=== PATIENT | female | born 1995 | race Caucasian/White ===

== ENCOUNTER 2020-08-12 02:50 | Observation (INO) ==
[2020-08-12] MEDS ORDERED: morphine 2 MG/ML VIAL IV PRN (02:55)
[2020-08-12] MEDS ORDERED: ONDANSETRON 4 MG/2 ML VIAL IV ONE (02:55)
--- NOTE | 2020-08-12 02:55 | Emergency Department Note ---
Back Pain HPI General Chief Complaint: Back Pain/Injury Stated Complaint: Back pain Time Seen by Provider: 08/12/20 02:54 Source: patient Limitations: no limitations History of Present Illness HPI Narrative: Narrative: Patient is a 25-year-old female who was seen earlier on my shift was diagnosed with cholelithiasis. Comes back with worsening right upper quadrant pain. Patient denies fever any jaundice type symptoms. Last time she had something to eat was 10:30 PM yesterday. Related Data Home Medications Medication Instructions Recorded Confirmed No Known Home Meds 08/12/20 08/12/20 Allergies Allergy/AdvReac Type Severity Reaction Status Date / Time No Known Drug Allergies Allergy Verified 08/12/20 02:53 Review of Systems ROS ROS Narrative: Narrative: All systems ED: reviewed and negative except as stated. PFSH Narrative Patient History Narrative: Narrative: Medical/Surgical/Family History All Active Problems Elevated bilirubin (Acute) Elevated liver transaminase level (Acute) Biliary colic (Acute) Cholecystitis (Acute) Social History Smoking Status: Never smoker Exam Narrative Narrative: Narrative: General Limitations: no limitations General appearance: Present alert Head Head: Present atraumatic and normocephalic Eye Eye: Present normal appearance, PERRL and EOMI ENT ENT: Present normal exam, normal oropharynx and mucous membranes moist Neck Neck: Present normal inspection, full ROM and trachea midline Chest Chest: Present normal inspection and symmetric chest wall rise Respiratory Respiratory: Present normal lung sounds bilaterally Cardiovascular Cardiovascular: Present regular rate and normal rhythm Adbominal Abdominal: Present soft, tenderness, guarding, rebound, normal bowel sounds and Rhodes's sign; Absent organomegaly, mass and pulsatile mass Rectal Rectal: Present deferred Extremities Extremities: Present normal inspection and full ROM; Absent tenderness Back Back: Present normal inspection and full ROM; Absent tenderness Neurological Neurological: Present alert, oriented X3, CN II-XII intact, normal gait, motor sensory deficit and reflexes normal Psychiatric Psychiatric: Present normal affect Skin Skin: Present warm (WNL); Absent rash Course Course Course Narrative: Patient's work-up was reviewed her ultrasound final interpretation by the radiologist is concerning for cholecystitis. However there is no gallbladder wall thickening there is no pericholecystic fluid and there is no leukocytosis and afebrile. I did consult the general surgeon Dr. Thompson who agreed to admit this patient for cholecystectomy. Patient updated and agreeable to plan. Basic facilitated admission orders were placed to include the patient to be n.p.o. as well as IV Zosyn. Vital Signs Vital signs: Vital Signs Temperature 98.3 F 08/12/20 02:51 Pulse Rate 88 08/12/20 02:51 Respiratory Rate 16 08/12/20 02:51 Blood Pressure 108/86 08/12/20 02:51 Pulse Oximetry (%) 98 08/12/20 02:51 Temperature 98.3 F 08/12/20 02:51 Pulse Rate 100 H 08/12/20 04:31 Respiratory Rate 16 08/12/20 02:51 Blood Pressure 110/80 08/12/20 04:31 Pulse Oximetry (%) 98 08/12/20 04:31 MDM MDM Narrative Medical decision making narrative: Narrative: Spoke to the general surgeon, Dr. Thompson who is agreed to admit this patient for cholecystectomy. Lab Data Result diagrams: 08/12/20 03:22 08/12/20 03:22 Labs: Lab Results 08/12/20 08/12/20 08/12/20 Range/Units 03:16 03:20 03:22 WBC 6.9 (4.5-11.0) K/mcL RBC 4.85 (4.00-5.20) M/mcL Hgb 14.0 (12.0-15.0) g/dL Hct 42.1 (36.0-48.0) % MCV 86.8 (80.0-100.0) fL MCH 28.9 (26.0-34.0) pg MCHC 33.3 (31.0-36.0) g/dL RDW 12.5 (11.5-14.5) % Plt Count 351 (140-440) K/mcL MPV 10.7 H (7.4-10.4) fL Neut % (Auto) 67.8 (38.0-78.0) % Lymph % (Auto) 24.6 (15.0-49.0) % [place] % (Auto) 5.9 (1.0-12.0) % Eos % (Auto) 1.0 (0.0-7.0) % Baso % (Auto) 0.7 (0.0-2.0) % Lymph # (Auto) 1.70 (1.50-4.80) K/mcL [place] # (Auto) 0.41 (0.10-0.90) K/mcL Eos # (Auto) 0.07 (0.00-0.70) K/mcL Baso # (Auto) 0.05 (0.00-0.20) K/mcL Absolute Neutrophils 4.69 (1.80-8.00) K/mcL PT 13.0 (11.9-14.5) sec INR 0.9 (0.9-1.1) VBG Lactic Acid 0.9 (0.5-2.0) mmol/L Sodium (133-145) mmol/L Potassium (3.3-5.1) mmol/L Chloride (96-108) mmol/L Carbon Dioxide (22-30) mmol/L Anion Gap (8.0-16.0) BUN (6-20) mg/dL Creatinine (0.6-1.1) mg/dL GFR Calculation Glucose (70-105) mg/dL Calcium (8.6-10.4) mg/dL Total Bilirubin (0.1-1.0) mg/dL AST (<32) U/L ALT (<40) U/L Alkaline Phosphatase (39-117) U/L Total Protein (5.9-8.4) gm/dL Albumin (3.2-5.2) gm/dL Globulin (2.2-3.7) gm/dL Albumin/Globulin Ratio (1.0-2.3) Lipase (7-60) U/L 08/12/20 Range/Units 03:22 WBC (4.5-11.0) K/mcL RBC (4.00-5.20) M/mcL Hgb (12.0-15.0) g/dL Hct (36.0-48.0) % MCV (80.0-100.0) fL MCH (26.0-34.0) pg MCHC (31.0-36.0) g/dL RDW (11.5-14.5) % Plt Count (140-440) K/mcL MPV (7.4-10.4) fL Neut % (Auto) (38.0-78.0) % Lymph % (Auto) (15.0-49.0) % [place] % (Auto) (1.0-12.0) % Eos % (Auto) (0.0-7.0) % Baso % (Auto) (0.0-2.0) % Lymph # (Auto) (1.50-4.80) K/mcL [place] # (Auto) (0.10-0.90) K/mcL Eos # (Auto) (0.00-0.70) K/mcL Baso # (Auto) (0.00-0.20) K/mcL Absolute Neutrophils (1.80-8.00) K/mcL PT (11.9-14.5) sec INR (0.9-1.1) VBG Lactic Acid (0.5-2.0) mmol/L Sodium 137 (133-145) mmol/L Potassium 3.8 (3.3-5.1) mmol/L Chloride 101 (96-108) mmol/L Carbon Dioxide 26 (22-30) mmol/L Anion Gap 10.0 (8.0-16.0) BUN 8 (6-20) mg/dL Creatinine 1.0 (0.6-1.1) mg/dL GFR Calculation 78 Glucose 121 H (70-105) mg/dL Calcium 9.2 (8.6-10.4) mg/dL Total Bilirubin 3.3 H (0.1-1.0) mg/dL AST 345 H (<32) U/L ALT 345 H (<40) U/L Alkaline Phosphatase 180 H (39-117) U/L Total Protein 7.0 (5.9-8.4) gm/dL Albumin 4.2 (3.2-5.2) gm/dL Globulin 2.8 (2.2-3.7) gm/dL Albumin/Globulin Ratio 1.5 (1.0-2.3) Lipase 26 (7-60) U/L Discharge Plan Patient/Caregiver Discharge Instructions Pt seen by POCKET SECRETARY ASSEMBLER/PA only: No Clinical Impression: Cholecystitis Patient Disposition: Xfer As Inpt ([facility]) Condition: Fair Discharge Date/Time: 08/12/20 04:33 Discharge Location: [facility]
[2020-08-12] MEDS ORDERED: ONDANSETRON 4 MG/2 ML VIAL IV PRN ×3 (03:10→16:00)
[2020-08-12] MEDS ORDERED: morphine 4 MG/ML VIAL IV PRN ×2 (03:10→16:00)
[2020-08-12] MEDS: 0.9 % SODIUM CHLORIDE 1,000 ML IV SCH ×3 (04:00→16:29)
[2020-08-12 04:02] LABS: Basophils # (Auto) 0.05 K/mcL (0.00-0.20); Basophils % (Auto) 0.7 % (0.0-2.0); Eosinophils # (Auto) 0.07 K/mcL (0.00-0.70); Hematocrit 42.1 % (36.0-48.0); Lymphocytes % (Auto) 24.6 % (15.0-49.0); Mean Cell Volume 86.8 fL (80.0-100.0); Mean Corpuscular HGB Conc 33.3 g/dL (31.0-36.0); Mean Platelet Volume 10.7 fL (7.4-10.4); Monocytes # (Auto) 0.41 K/mcL (0.10-0.90); Monocytes % (Auto) 5.9 % (1.0-12.0); Neutrophils % (Auto) 67.8 % (38.0-78.0); Platelet Count 351 K/mcL (140-440); RBC 4.85 M/mcL (4.00-5.20); Red Cell Distribution Width 12.5 % (11.5-14.5); WBC 6.9 K/mcL (4.5-11.0)
[2020-08-12] MEDS: PIPERACILLIN SODIUM/TAZOBACTAM 3.375 GM in DEXTROSE 5% IN WATER 50 ML IV SCH ×4 (04:05→16:48)
[2020-08-12 04:17] LABS: ALT/SGPT 345 U/L (<40); AST/SGOT 345 U/L (<32); Albumin 4.2 gm/dL (3.2-5.2); Albumin/Globulin Ratio 1.5 (1.0-2.3); Alkaline Phosphatase 180 U/L (39-117); Bilirubin,Total 3.3 mg/dL (0.1-1.0); Blood Urea Nitrogen 8 mg/dL (6-20); Calcium 9.2 mg/dL (8.6-10.4); Carbon Dioxide 26 mmol/L (22-30); Chloride 101 mmol/L (96-108); Globulin 2.8 gm/dL (2.2-3.7); Glomerular Filtration Rate 78; Glucose 121 mg/dL (70-105)
[2020-08-12 04:49] LABS: INR 0.9 (0.9-1.1)
[2020-08-12] MEDS: 0.9 % SODIUM CHLORIDE 10 ML SYRINGE IV SCH ×3 (06:08→22:24)
[2020-08-12] MEDS ORDERED: DOCUSATE SODIUM 100 MG CAPSULE PO SCH (09:00)
--- NOTE | 2020-08-12 11:13 | General Surg History&Physical ---
HPI History of Present Illness Patient information: Note initiated : 08/12/20 at 11:07 am Service Date, if different from initiated Date: [] Patient: Shasta Cooper a 25 y/o F admitted on 08/12/20 for Back pain. Chief Complaint: [] History of present illness: Ms. Cooper is a 25 year old F admitted with acute cholecystitis with choledocholithiasis. The patient gives a history of having onset of severe right-sided back pain in the posterior lateral aspect of the right lower rib cage. This occurred about 1-1/2 weeks ago. The pain gradually improved but she will have intermittent right flank pain with meals throughout the week. 2 days ago she had return of severe pain which was uncontrollable. She was again was seen in the emergency room where evaluation revealed gallstones with elevation of bilirubin and liver enzymes. She was treated sy mptomatically and discharged home to have follow-up in the office tomorrow. She was not able to get any discomfort with the hydrocodone so she returned to the emergency room. She has continued severe abdominal pain and her bilirubin and LFTs have increased. She now has dark urine and scleral icterus. Her bilirubin is 3.3. SGOT 345, SGPT 345, alkaline phos 180. Her white blood count is 6.9 and hemoglobin is 14. Patient resides in [place] and is visiting here. She was given the option of returning to [place] to have surgery and ERCP but she wishes to have surgery here and will accept having ERCP here also. She is counseled for laparoscopic cholecystectomy with cholangiogram today with plans to refer to it security manager tomorrow for ERCP within the next couple days. Review of Systems All systems: reviewed and no additional remarkable complaints except as stated PFSH PFSH All Active Problems (Updated 08/12/20 @ 11:19 by Kieran Thompson MD) Choledocholithiasis with cholecystitis (Acute) Cholelithiasis and cholecystitis without obstruction (Acute) Elevated bilirubin (Acute) Elevated liver transaminase level (Acute) Biliary colic (Acute) Cholecystitis (Acute) Surgical History (Updated 08/12/20 @ 11:17 by Kieran Thompson MD) Previous section Family History Mother No problems noted. Father No problems noted. Brother No problems noted. MEDS/ALLERGIES Home Medications and Allergies Home Medications Medication Instructions Recorded Confirmed Type No Known Home Meds 08/12/20 08/12/20 History Allergies Allergy/AdvReac Type Severity Reaction Status Date / Time No Known Drug Allergies Allergy Verified 08/12/20 02:53 Physical Examination Vital Signs Vital signs: Temp Pulse Resp BP Pulse Ox 97.8 F 77 18 89/55 98 08/12/20 07:59 08/12/20 07:59 08/12/20 07:59 08/12/20 07:59 08/12/20 07:59 General physical appearance General physical exam: well developed, well nourished, no distress and moderate pain Eyes Eye exam: PERRL, normal ocular movement and icteric (Mild scleral icterus) ENT ENT exam: normal mucosa and no congestion Head Head exam IM: Present atraumatic, normal inspection and normocephalic Neck Neck exam: no masses, no bruits, trachea midline and no lymphadenopathy Cardiovascular Cardiovascular exam IM: Present normal rate and rhythm and tachycardia Respiratory Respiratory exam: normal expansion, normal respiratory effort, clear to aus cultation and other Abdomen Abdomen: Present tender (Epigastric and right subcostal tenderness) Integumentary Integumentary: Present no rash, no growths and no abnormal pigmentation Neurologic Neurologic: Present normal coordination and normal sensation Musculoskeletal Musculoskeletal: Present normal gait, normal posture and other Psychiatric Psychiatric: Present oriented to time, oriented to person, oriented to place, speech is normal and memory intact Results Labs Result diagrams: 08/12/20 03:22 08/12/20 03:22 Labs: Abnormal lab results 08/12/20 08/12/20 Range/Units 03:22 03:22 MPV 10.7 H (7.4-10.4) fL Glucose 121 H (70-105) mg/dL Total Bilirubin 3.3 H (0.1-1.0) mg/dL AST 345 H (<32) U/L ALT 345 H (<40) U/L Alkaline Phosphatase 180 H (39-117) U/L Diabetes panel 08/12/20 Range/Units 03:22 Sodium 137 (133-145) mmol/L Potassium 3.8 (3.3-5.1) mmol/L Chloride 101 (96-108) mmol/L Carbon Dioxide 26 (22-30) mmol/L BUN 8 (6-20) mg/dL Creatinine 1.0 (0.6-1.1) mg/dL Glucose 121 H (70-105) mg/dL Calcium 9.2 (8.6-10.4) mg/dL AST 345 H (<32) U/L ALT 345 H (<40) U/L Alkaline Phosphatase 180 H (39-117) U/L Total Protein 7.0 (5.9-8.4) gm/dL Albumin 4.2 (3.2-5.2) gm/dL Calcium panel 08/12/20 Range/Units 03:22 Calcium 9.2 (8.6-10.4) mg/dL Albumin 4.2 (3.2-5.2) gm/dL Pituitary panel 08/12/20 Range/Units 03:22 Sodium 137 (133-145) mmol/L Potassium 3.8 (3.3-5.1) mmol/L Chloride 101 (96-108) mmol/L Carbon Dioxide 26 (22-30) mmol/L BUN 8 (6-20) mg/dL Creatinine 1.0 (0.6-1.1) mg/dL Glucose 121 H (70-105) mg/dL Calcium 9.2 (8.6-10.4) mg/dL Adrenal panel 08/12/20 Range/Units 03:22 Sodium 137 (133-145) mmol/L Potassium 3.8 (3.3-5.1) mmol/L Chloride 101 (96-108) mmol/L Carbon Dioxide 26 (22-30) mmol/L BUN 8 (6-20) mg/dL Creatinine 1.0 (0.6-1.1) mg/dL Glucose 121 H (70-105) mg/dL Calcium 9.2 (8.6-10.4) mg/dL Total Bilirubin 3.3 H (0.1-1.0) mg/dL AST 345 H (<32) U/L ALT 345 H (<40) U/L Alkaline Phosphatase 180 H (39-117) U/L Total Protein 7.0 (5.9-8.4) gm/dL Albumin 4.2 (3.2-5.2) gm/dL All other labs normal. A/P Assessment and plan (1) Cholelithiasis and cholecystitis without obstruction: Status: Acute Qualifiers: Cholelithiasis location: gallbladder Cholecystitis acuity: acute Qualified Code(s): K80.00 - Calculus of gallbladder with acute cholecystitis without obstruction (2) Choledocholithiasis with cholecystitis: Status: Acute Narrative A/P Narrative: Patient is counseled for laparoscopic cholecystectomy with cholangiogram. It is highly probable that with the elevated liver enzymes and bilirubin with clinical jaundice that she has a common bile duct stone. We cannot get MRCP today but I will proceed with cholecystectomy and do cholangiogram with plans to schedule ERCP over the next 2 days once g astroenterology is available. Time Spent With Patient Time: Total time spent is greater than 50% in coordination of care (as do cumented) at patient's floor/unit and/or counseling patient:
[2020-08-12] MEDS ORDERED: SUGAMMADEX SODIUM 200 MG/2 ML VIAL IV ONE (13:10)
[2020-08-12] MEDS ORDERED: fentaNYL 250 MCG/5 ML VIAL IV ONE (13:10)
[2020-08-12] MEDS ORDERED: PROPOFOL 200 MG/20 ML VIAL IV ONE (13:10)
[2020-08-12] MEDS ORDERED: LIDOCAINE HCL/PF 100 MG/5 ML SYRINGE IV ONE (13:10)
[2020-08-12] MEDS ORDERED: KETAMINE 50 MG/ML ML ONE (13:10)
[2020-08-12] MEDS ORDERED: DEXAMETHASONE 10 MG/ML VIAL ONE (13:10)
[2020-08-12] MEDS ORDERED: MAGNESIUM SULFATE 2 GM/50 ML BAG IV ONE (13:10)
[2020-08-12] MEDS ORDERED: ONDANSETRON 4 MG/2 ML VIAL ONE (13:10)
[2020-08-12] MEDS ORDERED: ROCURONIUM 10 MG/ML ML IV ONE (13:10)
[2020-08-12] MEDS ORDERED: IOVERSOL 20 ML VIAL IV ONE (13:40)
[2020-08-12] MEDS ORDERED: IPRATROPIUM/ALBUTEROL 3 ML AMPUL.NEB NEB PRN (14:13)
[2020-08-12] MEDS ORDERED: BENZOCAINE/MENTHOL 1 LOZENGE PO PRN (14:13)
[2020-08-12] MEDS ORDERED: KETOROLAC 30 MG/ML VIAL IV PRN (14:13)
[2020-08-12] MEDS ORDERED: diphenhydrAMINE 50 MG/ML VIAL IV PRN (14:13)
[2020-08-12] MEDS ORDERED: MEPERIDINE 25 MG/ML VIAL IV PRN (14:13)
[2020-08-12] MEDS ORDERED: PROMETHAZINE 25 MG/ML VIAL IV PRN (14:13)
[2020-08-12] MEDS ORDERED: fentaNYL 100 MCG/2 ML VIAL IV PRN (14:13)
[2020-08-12] MEDS ORDERED: ACETAMINOPHEN 1,000 MG/100 ML BAG IV ONE (14:13)
[2020-08-12] MEDS ORDERED: NALOXONE HCL 0.4 MG/ML VIAL IV PRN (14:13)
[2020-08-12] MEDS ORDERED: LACTATED RINGERS 250 ML IV PRN (14:13)
[2020-08-12] MEDS ORDERED: LACTATED RINGERS 1,000 ML IV SCH (14:15)
--- NOTE | 2020-08-12 14:38 | Brief Operative Note ---
Brief Operative Note Date of procedure: 08/12/20 Pre-op diagnosis: cholelithiasis with cholecystitis,choledocholithiasis Post-op diagnosis: other (cholelithiasis with cholcystitisand choledocholithiasis) Procedure: laparoscopic cholecystectomywith cholangiogram Grafts/Implants: No Anesthesia: GETA Findings: acute inflammation of gallbladder with multiple stones and distal common bile duct stone with obstruction Complications: none Surgeon: Kieran Thompson Estimated blood loss (cc): 10 Specimens Removed/Pathology: other (gallbladder) Condition: stable Disposition: PACU
[2020-08-12] MEDS ORDERED: oxyCODONE HCL 5 MG TABLET PO PRN ×2 (14:44→16:00)
[2020-08-12] MEDS ORDERED: HYDROmorphone 0.5 MG/0.5 ML SYRINGE IV PRN (14:44)
--- NOTE | 2020-08-12 14:54 | XRay Report ---
HISTORY: FINDINGS: IMPRESSION: 1.3 minutes of fluoroscopy time was used. Interpreted and Authenticated by: Jean Paul Kay 08/12/20
[2020-08-12] MEDS: HYDROmorphone 0.5 MG/0.5 ML SYRINGE IV PRN (18:14)
[2020-08-12] MEDS ORDERED: SENNOSIDES 1 TABLET PO SCH (21:00)
[2020-08-12] MEDS: DOCUSATE SODIUM 100 MG CAPSULE PO SCH (22:23)
[2020-08-12] MEDS: SENNOSIDES 1 TABLET PO SCH (22:24)
[2020-08-13] MEDS: PIPERACILLIN SODIUM/TAZOBACTAM 3.375 GM in DEXTROSE 5% IN WATER 50 ML IV SCH ×4 (00:02→17:30)
[2020-08-13] MEDS: HYDROmorphone 0.5 MG/0.5 ML SYRINGE IV PRN ×6 (00:55→20:30)
[2020-08-13] MEDS: 0.9 % SODIUM CHLORIDE 1,000 ML IV SCH ×4 (03:20→22:16)
[2020-08-13] MEDS: 0.9 % SODIUM CHLORIDE 10 ML SYRINGE IV SCH ×3 (04:13→22:15)
[2020-08-13 07:01] LABS: Basophils # (Auto) 0.01 K/mcL (0.00-0.20); Basophils % (Auto) 0.1 % (0.0-2.0); Eosinophils # (Auto) 0 K/mcL (0.00-0.70); Eosinophils % (Auto) 0 % (0.0-7.0); Lymphocytes # (Auto) 1.63 K/mcL (1.50-4.80); Lymphocytes % (Auto) 17.1 % (15.0-49.0); Mean Cell Volume 87.5 fL (80.0-100.0); Mean Corpuscular HGB Conc 32.5 g/dL (31.0-36.0); Mean Platelet Volume 10.7 fL (7.4-10.4); Monocytes # (Auto) 0.54 K/mcL (0.10-0.90); Monocytes % (Auto) 5.7 % (1.0-12.0); Neutrophils % (Auto) 77.1 % (38.0-78.0); Platelet Count 343 K/mcL (140-440); RBC 4.57 M/mcL (4.00-5.20); Red Cell Distribution Width 12.6 % (11.5-14.5); WBC 9.5 K/mcL (4.5-11.0)
[2020-08-13 07:16] LABS: ALT/SGPT 523 U/L (<40); AST/SGOT 380 U/L (<32); Albumin 3.7 gm/dL (3.2-5.2); Albumin/Globulin Ratio 1.4 (1.0-2.3); Alkaline Phosphatase 195 U/L (39-117); Bilirubin,Direct 1.7 mg/dL (<0.3); Bilirubin,Total 2.8 mg/dL (0.1-1.0); Blood Urea Nitrogen 6 mg/dL (6-20); Calcium 8.9 mg/dL (8.6-10.4); Carbon Dioxide 19 mmol/L (22-30); Chloride 104 mmol/L (96-108); Globulin 2.7 gm/dL (2.2-3.7); Glomerular Filtration Rate 78; Glucose 118 mg/dL (70-105); Lactate Dehydrogenase 410 U/L (135-225); Phosphorous 3.6 mg/dL (2.5-4.5); Triglycerides 120 mg/dL (<150); Uric Acid 1.9 mg/dL (2.5-8.0)
[2020-08-13] MEDS: DOCUSATE SODIUM 100 MG CAPSULE PO SCH ×2 (08:48→20:31)
[2020-08-13] MEDS ORDERED: INDOMETHACIN 25 MG CAPSULE PO ONE (13:34)
[2020-08-13] MEDS ORDERED: NITROGLYCERIN 0.6 MG/HR PATCH TD ONE (14:30)
[2020-08-13] MEDS ORDERED: PROPOFOL 200 MG/20 ML VIAL IV ONE (14:39)
[2020-08-13] MEDS ORDERED: MIDAZOLAM 2 MG/2 ML VIAL IV ONE (15:00)
[2020-08-13] MEDS: LACTATED RINGERS 1,000 ML IV SCH ×3 (15:32→22:17)
--- NOTE | 2020-08-13 16:02 | Internal Medicine Consult Note ---
HPI Data of Consult Primary Care Provider: PCP No Consult Narrative Chief complaint: choledocholithiasis Reason for consult: choledocholithiasis History of present illness: Ms. Cooper is a 25 year old white female who is 4 weeks . She presented to the emergency department last week for complaints of epigastric pain and was discovered to have cholelithiasis. She was sent home, but returned for worsening pain and underwent laparoscopic cholecystectomy.intraoperative cholangiogram showed a dilated common bile duct without any flow into the duodenum. Therefore,the gastroenterology service was consulted for possible ercp. She's had mild right upper quadrant abdominal pain and transaminases have been elevated up to 500 with a total bilirubin 2.8, direct bilirubin 1.7. she is concerned about post-procedure nausea and vomiting as she had significant trouble with hyperemesis gravidarum during her recent . She is lactating. Her significant other is at the bedside. She denies jaundice or dark urine. cc:: CC: Kieran Thompson MD Review of Systems All systems: reviewed and no additional remarkable complaints except as stated PFSH PFSH All Active Problems Choledocholithiasis with cholecystitis (Acute) Cholelithiasis and cholecystitis without obstruction (Acute) Elevated bilirubin (Acute) Elevated liver transaminase level (Acute) Biliary colic (Acute) Cholecystitis (Acute) Surgical History Previous section Family History Mother No problems noted. Father No problems noted. Brother No problems noted. MEDS/ALLERGIES Home Medications and Allergies Home Medications Medication Instructions Recorded Confirmed Type No Known Home Meds 08/12/20 08/12/20 History Allergies Allergy/AdvReac Type Severity Reaction Status Date / Time No Known Drug Allergies Allergy Verified 08/12/20 02:53 EXAM Constitutional Vitals: Temp Pulse Resp BP Pulse Ox 98.9 F 93 H 20 125/74 95 08/13/20 12:00 08/13/20 12:00 08/13/20 12:00 08/13/20 12:00 08/13/20 12:00 Head Head exam: Present atraumatic, normal inspection and normocephalic Eye Eye exam: Present normal appearance Pupils: Present normal accommodation ENT ENT exam: Present mucous membranes moist and normal exam Respiratory Respiratory exam: Present normal respiratory exam and CTAB; Absent accessory muscle use, rales, rhonchi and wheezes Cardiovascular Cardiovascular exam: Present normal rate and rhythm; Absent diastolic murmur, gallop, rubs and systolic murmur GI/Abdominal GI/Abdominal exam: Present normal bowel sounds, soft and tenderness; Absent hernia and organomegaly Neurological Exam Neurological exam: Present alert and oriented X3 Skin Skin exam: Present dry, normal color and warm DATA Data Completed and Pending Labs: Labs from last 24 hours 08/13/20 08/13/20 05:29 05:29 WBC 9.5 RBC 4.57 Hgb 13.0 Hct 40.0 MCV 87.5 MCH 28.4 MCHC 32.5 RDW 12.6 Plt Count 343 MPV 10.7 H Neut % (Auto) 77.1 Lymph % (Auto) 17.1 [place] % (Auto) 5.7 Eos % (Auto) 0 Baso % (Auto) 0.1 Lymph # (Auto) 1.63 [place] # (Auto) 0.54 Eos # (Auto) 0 Baso # (Auto) 0.01 Absolute Neutrophils 7.36 Sodium 137 Potassium 4.2 Chloride 104 Carbon Dioxide 19 L Anion Gap 14.0 BUN 6 Creatinine 1.0 GFR Calculation 78 Glucose 118 H Uric Acid 1.9 L Calcium 8.9 Phosphorus 3.6 Magnesium 2.0 Total Bilirubin 2.8 H Direct Bilirubin 1.7 H GGT 307 H AST 380 H ALT 523 H Alkaline Phosphatase 195 H Lactate Dehydrogenase 410 H Total Protein 6.4 Albumin 3.7 Globulin 2.7 Albumin/Globulin Ratio 1.4 Triglycerides 120 A/P Assessment and plan (1) Choledocholithiasis with cholecystitis: Status: Acute Narrative A/P Narrative: We will proceed with ercp. We discussed the procedure in length, using an illustration. She was advised of the risks of pancreatitis, infection,bleeding, perforation, among others. If a stent is placed, she understands she will require repeat ercp for [place] will. She lives in [place], [place], so we may attempt to coordinate stent retrieval a local asian art curator there. She agreed to proceed. Time Spent With Patient Time: Total time spent is greater than 50% in coordination of care (as documented) at patient's floor/unit and/or counseling patient: Total time spent with greater than 50% in coordination of care (as documented) at patient's floor/unit and/or counseling patient:: 15 - 24 minutes
--- NOTE | 2020-08-13 16:07 | General Surgery Progress Note ---
SUBJECTIVE Subjective Patient information: Note initiated : 08/13/20 at 4:03 pm Service Date, if different from initiated Date: [] Patient: Shasta Cooper 25 y/o F admitted on 08/12/20 for Back pain. Chief Complaint: [] Principal diagnosis: Acute cholecystitis choledocholithiasis Interval history: Patient has done well throughout the night. Her pain is controlled. Liver panel shows persistent elevation in bilirubin and t ransaminases. She is scheduled for ERCP later today. Constitutional Vitals: Vital Signs Temp Pulse Resp BP Pulse Ox 98.9 F 93 H 20 125/74 95 08/13/20 12:00 08/13/20 12:00 08/13/20 12:00 08/13/20 12:00 08/13/20 12:00 Period Temp Pulse Resp BP Sys/Johnson Pulse Ox Last 24 Hr 98.1 F-99.2 F 66-115 16-20 112-127/71-83 95-98 Intake and Output 08/13/20 08/13/20 08/13/20 05:59 13:59 21:59 Intake Total 2450 1100 Output Total 2000 Balance 450 1100 Intake & Output: Intake & Output 08/13/20 08/13/20 08/13/20 05:59 13:59 21:59 Intake Total 2450 1100 Output Total 2000 Balance 450 1100 Intake: IV 1050 1100 Sodium Chloride 0.9% 1,000 ml @ 1000 1000 100 mls/hr IV .Q10H DIANE Rx#: [id number] Zosyn 3.375 gm In Dextrose 5% 50 100 in Water 50 ml @ 100 mls/hr IV Q6H DIANE Rx#:[id number] Oral 1400 Output: Void Amount 2000 Other: Urine Appearance Clear Urine Color Light Zaria Urine Odor Normal Eye Eye exam: Present EOMI and scleral icterus Pupils: Present normal accommodation and PERRL ENT ENT exam: Present mucous membranes moist and normal exam Neck Neck exam: Present full ROM; Absent tenderness and thyromegaly Respiratory Respiratory exam: Present normal respiratory exam and CTAB; Absent rhonchi and wheezes Cardiovascular Cardiovascular exam: Present normal rate and rhythm, RRR, +S1 and +S2; Absent JVD GI/Abdominal GI/Abdominal exam: Present normal bowel sounds, soft and distended (Mild distention) Extremities Exam Extremities exam: Present full ROM and normal inspection Neurological Exam Neurological exam: Present alert and oriented X3; Absent motor sensory deficit Psychiatric Psychiatric exam: Present normal affect and normal mood A/P Assessment and plan (1) Cholelithiasis and cholecystitis without obstruction: Status: Acute Qualifiers: Cholelithiasis location: gallbladder Cholecystitis acuity: acute Qualified Code(s): K80.00 - Calculus of gallbladder with acute cholecystitis without obstruction (2) Choledocholithiasis with cholecystitis: Status: Acute Narrative A/P Narrative: Patient will have ERCP today Anticipate discharge tomorrow Time Spent With Patient Time: Total time spent is greater than 50% in coordination of care (as documented) at patient's floor/unit and/or counseling patient:
[2020-08-13] MEDS ORDERED: ACETAMINOPHEN 1,000 MG/100 ML BAG IV SCH (19:00)
[2020-08-13] MEDS ORDERED: ACETAMINOPHEN 1,000 MG/100 ML BAG IV PRN (19:00)
[2020-08-13] MEDS: SENNOSIDES 1 TABLET PO SCH (20:31)
[2020-08-14] MEDS: PIPERACILLIN SODIUM/TAZOBACTAM 3.375 GM in DEXTROSE 5% IN WATER 50 ML IV SCH ×3 (00:05→12:55)
[2020-08-14] MEDS: HYDROmorphone 0.5 MG/0.5 ML SYRINGE IV PRN ×2 (00:20→03:42)
[2020-08-14] MEDS ORDERED: ACETAMINOPHEN 1,000 MG/100 ML BAG IV ONE (04:41)
[2020-08-14] MEDS: 0.9 % SODIUM CHLORIDE 10 ML SYRINGE IV SCH ×2 (04:52→12:58)
[2020-08-14] MEDS: LACTATED RINGERS 1,000 ML IV SCH ×2 (05:01→15:15)
[2020-08-14 07:27] LABS: Basophils # (Auto) 0.06 K/mcL (0.00-0.20); Basophils % (Auto) 0.7 % (0.0-2.0); Eosinophils # (Auto) 0.27 K/mcL (0.00-0.70); Eosinophils % (Auto) 2.9 % (0.0-7.0); Hematocrit 36.1 % (36.0-48.0); Hemoglobin 11.7 g/dL (12.0-15.0); Lymphocytes # (Auto) 3.64 K/mcL (1.50-4.80); Lymphocytes % (Auto) 39.4 % (15.0-49.0); Mean Cell Volume 88.3 fL (80.0-100.0); Mean Corpuscular HGB Conc 32.4 g/dL (31.0-36.0); Mean Platelet Volume 10.8 fL (7.4-10.4); Monocytes # (Auto) 0.55 K/mcL (0.10-0.90); Platelet Count 266 K/mcL (140-440); RBC 4.09 M/mcL (4.00-5.20); Red Cell Distribution Width 12.9 % (11.5-14.5); WBC 9.2 K/mcL (4.5-11.0)
[2020-08-14 08:16] LABS: ALT/SGPT 351 U/L (<40); AST/SGOT 143 U/L (<32); Albumin 3.6 gm/dL (3.2-5.2); Albumin/Globulin Ratio 1.4 (1.0-2.3); Alkaline Phosphatase 157 U/L (39-117); Bilirubin,Direct 0.4 mg/dL (<0.3); Blood Urea Nitrogen 5 mg/dL (6-20); Carbon Dioxide 25 mmol/L (22-30); Chloride 103 mmol/L (96-108); Globulin 2.6 gm/dL (2.2-3.7); Glomerular Filtration Rate 89; Glucose 82 mg/dL (70-105); Lactate Dehydrogenase 203 U/L (135-225); Phosphorous 3.6 mg/dL (2.5-4.5); Triglycerides 175 mg/dL (<150); Uric Acid 1.6 mg/dL (2.5-8.0)
[2020-08-14] MEDS: DOCUSATE SODIUM 100 MG CAPSULE PO SCH (09:07)
[2020-08-14] MEDS: 0.9 % SODIUM CHLORIDE 1,000 ML IV SCH ×2 (09:21→14:27)
--- NOTE | 2020-08-14 10:41 | ERCP Procedure Note ---
ERCP Procedure Note Procedure Information Patient information: Note initiated : 08/14/20 at 10:39 am Service Date: 08/13/20 Patient: Shasta Cooper 25 y/o F admitted on 08/12/20 for Back pain. Pre-op diagnosis general: Common bile duct obstruction. Post-op diagnosis general: Common bile duct stone. Procedure: ERCP with Stone Extraction Procedure narrative: The procedures, alternatives and risks were discussed with the patient and the patient's questions were answered. With endoscopist-administered intravenous sedation, the Olympus side viewing operating duodenoscope was introduced into the esophagus and advanced to the second part of the duodenum without difficulty. The ampulla of Vater was seated in a small diverticulum. The bile duct was selectively cannulated taking care to avoid the pancreatic duct and cholangiogram obtained. The bile duct was dilated and obstructed with a common duct stone, which was extracted with balloon techniques. At the end of the procedure, the bile duct appeared to be cleared of all stones. The scope was withdrawn. Assessment: Common bile duct stone.
--- NOTE | 2020-08-14 11:17 | Surgical Pathology Report ---
Histology Microscopic Diagnosis Specimen A- GALLBLADDER, CHOLECYSTECTOMY: --- CHRONIC CHOLECYSTITIS. --- CHOLELITHIASIS. --- ONE PERICYSTIC LYMPH NODE WITH LYMPHOID HYPERPLASIA. (DMT). Procedural Impression Cholecystitis; cholelithiasis. Gross Description Received in formalin labeled gallbladder, is a 6.2 x 2.7 x 1.1 cm pink-purple gallbladder specimen. The majority of the serosa is smooth and glistening with approximately 35% roughened brown-martinez. There are two metal clamps present neither of which are on the cystic duct. The mucosa is velvety pink-martinez with no masses or lesions identified. The wall is up to 0.3 cm thick. A 0.3 cm possible lymph node is identified near the cystic duct. There are multiple yellow martinez stones found within the gallbladder specimen ranging in size from less than 0.1 up to 0.4 cm. [employer] portions of the gallbladder specimen including possible lymph node are submitted in one cassette. ([facility]:bmw) Electronically Signed Fabian Bateman MD, FCAP Electronically Signed 08/14/2020 11:16
--- NOTE | 2020-08-14 14:10 | General Surgery Progress Note ---
SUBJECTIVE Subjective Patient information: Note initiated : 08/14/20 at 2:04 pm Service Date, if different from initiated Date: [] Patient: Shasta Cooper 25 y/o F admitted on 08/12/20 for Back pain. Chief Complaint: [] Principal diagnosis: Acute cholecystitis choledocholithiasis Interval history: Patient is doing well. Her pain is controlled. She denies nausea. Bilirubin has decreased to 1 and her SGOT SGPT and alkaline phos have also decreased. Lipase is minimally elevated at 76. White blood count 9.2. ERCP was successful in removing a small stone on yesterday. Constitutional Vitals: Vital Signs Temp Pulse Resp BP Pulse Ox 97.5 F 78 12 116/74 96 08/14/20 08:00 08/14/20 08:00 08/14/20 08:00 08/14/20 08:00 08/14/20 08:00 Period Temp Pulse Resp BP Sys/Johnson Pulse Ox Last 24 Hr 97.5 F-98.8 F 65-108 12-23 86-134/43-99 94-100 Intake and Output 08/14/20 08/14/20 08/14/20 05:59 13:59 21:59 Intake Total 1350 50 Balance 1350 50 Weight 215 lb 12.8 oz 215 lb 12.8 oz Patient Weight 08/15/20 05:59 Weight 215 lb 12.8 oz Intake & Output: Intake & Output 08/14/20 08/14/20 08/14/20 05:59 13:59 21:59 Intake Total 1350 50 Balance 1350 50 Weight 215 lb 12.8 oz 215 lb 12.8 oz Intake: IV 1250 50 Lactated Ringers 1,000 ml @ 125 1000 mls/hr IV .Q8H DIANE Rx#: [id number] Zosyn 3.375 gm In Dextrose 5% 50 50 in Water 50 ml @ 100 mls/hr IV Q6H DIANE Rx#:[id number] Oral 100 Other: # Voids 1 Head Head exam: Present atraumatic, normal inspection and normocephalic Eye Eye exam: Present conjunctival injection, EOMI, normal appearance and scleral icterus Pupils: Present PERRL ENT ENT exam: Present mucous membranes moist and normal exam Neck Neck exam: Present full ROM and normal inspection; Absent tenderness Respiratory Respiratory exam: Present normal respiratory exam and CTAB; Absent rales, rhonchi and wheezes Cardiovascular Cardiovascular exam: Present normal rate and rhythm, RRR, +S1 and +S2; Absent JVD GI/Abdominal GI/Abdominal exam: Present normal bowel sounds, soft, distended (Mild di stention) and tenderness (Mild tenderness of port sites) Extremities Exam Extremities exam: Present full ROM, pedal edema and neurovascular intact Neurological Exam Neurological exam: Present alert, CN II-XII intact, motor sensory deficit and normal gait Psychiatric Psychiatric exam: Present anxious, normal affect and normal mood A/P Assessment and plan (1) Cholelithiasis and cholecystitis without obstruction: Status: Acute Qualifiers: Cholelithiasis location: gallbladder Cholecystitis acuity: acute Qualified Code(s): K80.00 - Calculus of gallbladder with acute cholecystitis without obstruction (2) Choledocholithiasis with cholecystitis: Status: Acute Narrative A/P Narrative: Patient is stable status post cholecystectomy and ERCP with stone extraction. She is clinically stable for discharge home. Time Spent With Patient Time: Total time spent is greater than 50% in coordination of care (as documented) at patient's floor/unit and/or counseling patient:
--- NOTE | 2020-08-14 14:15 | Discharge Summary ---
Discharge Provider Provider Patient information: Note initiated : 08/14/20 at 2:10 pm Service Date, if different from initiated Date: [] Patient: Shasta Cooper 25 y/o F admitted on 08/12/20 for Back pain. Chief Complaint: [] Date of admission: 08/12/20 04:33 Discharge date: 08/14/20 Primary care physician: PCP No Admitting clinician: Kieran Thompson Attending physician on admission: Kieran Thompson Consults: Gastroenterology 08/13/20 07:41 Consult to Physician [CONS] Routine Comment: Consulting Provider: Kieran Thompson Reason For Exam: Physician to Consult Attending physician on discharge: Kieran Thompson Discharging clinician: Kieran Thompson COURSE Hospital Course Hospital course: 25-year-old female who was admitted with history of acute recurrent severe abdominal pain. She had elevated liver enzymes including bilirubin SGOT, SGPT, alkaline phosphatase. Upper abdominal ultrasound showed multiple scattered small stones. Patient underwent cholecystectomy with cholangiogram. Cholangiogram showed no flow into the duodenum with the distal common duct stone. She had successful ERCP yesterday with extraction of the stone and sphincterotomy. She is doing well and the bilirubin and LFTs are trending down. Her lipase is minimally elevated 76. White blood count is 9.2. Patient is clinically stable and is discharged home in satisfactory condition. Discharge diagnosis: Cholelithiasis with cholecystitis and choledocholithiasis Reason for admission: Cholelithiasis with cholecystitis Procedures: Laparoscopic cholecystectomy with cholangiogram Complications: None Time Spent with Patient Time attestation: Total time spent providing and/or coordinating discharge services: Physical Examination Vital Signs Vital signs: Temp Pulse Resp BP Pulse Ox 97.5 F 78 12 116/74 96 08/14/20 08:00 08/14/20 08:00 08/14/20 08:00 08/14/20 08:00 08/14/20 08:00 General physical appearance General physical exam: well developed, well nourished, no distress and moderate pain Eyes Eye exam: PERRL, normal ocular movement and icteric (Mild scleral icterus) ENT ENT exam: normal mucosa and no congestion Head Head exam IM: Present atraumatic, normal inspection and normocephalic Neck Neck exam: no masses, no bruits, trachea midline and no lymphadenopathy Cardiovascular Cardiovascular exam IM: Present normal rate and rhythm and tachycardia Respiratory Respiratory exam: normal expansion, normal respiratory effort, clear to auscultation and other Abdomen Abdomen: Present tender (Epigastric and right subcostal tenderness) Integumentary Integumentary: Present no rash, no growths and no abnormal pigmentation Neurologic Neurologic: Present normal coordination and normal sensation Musculoskeletal Musculoskeletal: Present normal gait, normal posture and other Psychiatric Psychiatric: Present oriented to time, oriented to person, oriented to place, speech is normal and memory intact Discharge Plan Patient/Caregiver Discharge Instructions Activity: increase activity as tolerated Diet: Low Fat Prescriptions: New oxycodone-acetaminophen [Endocet] 10-325 mg tablet 1 tab PO Q4H PRN (Reason: Pain) Qty: 30 RF: 0 Follow Up Plan Follow up with: Kieran Thompson MD [Physician] - (Contact office for appointment on 30 August) Queenie,PCP [Primary Care Provider] - Patient Disposition: Home, Self-Care Prognosis: Good Rehab Potential: Good I certify that the patient requires SNF services: No Overall status at discharge: patient is progressing back to baseline Discharge Orders: Discharge Order (Routine); Ordered 08/14/20 Ordered By: Kieran Thompson Pending Pending Pending: Resuscitation Status Full Code Diet Regular Diet Start ThuAug 15 919 Docusate Sodium (Docusate Sodium 100 Mg Capsule) 100 mg PO BID [facility] Last Admin: 08/14/20 09:07 Dose: 100 mg Documented by: Admin: 08/13/20 20:31 Dose: 100 mg Documented by: Admin: 08/13/20 08:48 Dose: 100 mg Documented by: Admin: 08/12/20 22:23 Dose: Not Given Documented by: ANGIE Hydromorphone HCl (Hydromorphone 0.5 Mg/0.5 Ml Syringe) 0.5 mg IV Q2HP PRN; Protocol PRN Reason: Per Pain Protocol Last Admin: 08/14/20 03:42 Dose: 0.5 mg Documented by: Admin: 08/14/20 00:20 Dose: 0.5 mg Documented by: Admin: 08/13/20 20:30 Dose: 0.5 mg Documented by: Admin: 08/13/20 13:50 Dose: 0.5 mg Documented by: Admin: 08/13/20 10:36 Dose: 0.5 mg Documented by: Admin: 08/13/20 06:25 Dose: 0.5 mg Documented by: Admin: 08/13/20 03:56 Dose: 0.5 mg Documented by: Admin: 08/13/20 00:55 Dose: 0.5 mg Documented by: Admin: 08/12/20 18:14 Dose: 0.5 mg Documented by: OFELIA Sodium Chloride (Sodium Chloride 0.9%) 1,000 mls @ 100 mls/hr IV .Q10H [facility] Last Admin: 08/14/20 09:21 Dose: Not Given Documented by: Admin: 08/13/20 22:16 Dose: Not Given Documented by: Infusion: 08/13/20 18:00 Dose: 100 mls/hr Documented by: Admin: 08/13/20 14:02 Dose: 100 mls/hr Documented by: Admin: 08/13/20 13:20 Dose: Not Given Documented by: Infusion: 08/13/20 13:20 Dose: 100 mls/hr Documented by: Admin: 08/13/20 03:20 Dose: 100 mls/hr Documented by: Admin: 08/12/20 16:29 Dose: Not Given Documented by: OFELIA Piperacillin Sod/Tazobactam (Sod 3.375 gm/ Dextrose) 50 mls @ 100 mls/hr IV Q6H [facility]; Protocol Last Admin: 08/14/20 12:55 Dose: 100 mls/hr Documented by: Infusion: 08/14/20 06:43 Dose: 0 mls/hr Documented by: Admin: 08/14/20 06:07 Dose: 100 mls/hr Documented by: Infusion: 08/14/20 00:59 Dose: 100 mls/hr Documented by: Admin: 08/14/20 00:05 Dose: 100 mls/hr Documented by: Infusion: 08/13/20 18:29 Dose: 0 mls/hr Documented by: Admin: 08/13/20 17:30 Dose: 100 mls/hr Documented by: Infusion: 08/13/20 13:20 Dose: 0 mls/hr Documented by: Admin: 08/13/20 12:10 Dose: 100 mls/hr Documented by: Infusion: 08/13/20 06:38 Dose: 0 mls/hr Documented by: Admin: 08/13/20 06:03 Dose: 100 mls/hr Documented by: Infusion: 08/13/20 00:35 Dose: 100 mls/hr Documented by: Admin: 08/13/20 00:02 Dose: 100 mls/hr Documented by: Infusion: 08/12/20 18:30 Dose: 100 mls/hr Documented by: Admin: 08/12/20 16:48 Dose: 100 mls/hr Documented by: OFELIA Lactated Ringer's (Lactated Ringers) 1,000 mls @ 125 mls/hr IV .Q8H DIANE Last Admin: 08/14/20 05:01 Dose: 125 mls/hr Documented by: Infusion: 08/14/20 04:31 Dose: 125 mls/hr Documented by: Admin: 08/13/20 22:17 Dose: Not Given Documented by: Admin: 08/13/20 20:31 Dose: 125 mls/hr Documented by: Infusion: 08/13/20 20:31 Dose: 125 mls/hr Documented by: Admin: 08/13/20 15:32 Dose: 125 mls/hr Documented by: OFELIA Acetaminophen ([facility]) 1,000 mg in 100 mls @ 200 mls/hr IV Q6HP PRN; Protocol PRN Reason: Pain Last Infusion: 08/14/20 05:40 Dose: 200 mls/hr Documented by: Admin: 08/14/20 05:01 Dose: 200 mls/hr Documented by: ANGIE Oxycodone HCl (Oxycodone Hcl 5 Mg Tablet) 10 mg PO Q4HP PRN; Protocol PRN Reason: Per Pain Protocol Last Admin: 08/14/20 10:07 Dose: 10 mg Documented by: HAGENTHE Senna (Sennosides 1 Tablet) 2 tab PO HS [facility] Last Admin: 08/13/20 20:31 Dose: 2 tab Documented by: Admin: 08/12/20 22:24 Dose: Not Given Documented by: ANGIE Sodium Chloride (0.9 % Sodium Chloride 10 Ml Syringe) 10 ml IV Q8 [facility] Last Admin: 08/14/20 12:58 Dose: Not Given Documented by: Admin: 08/14/20 04:52 Dose: Not Given Documented by: Admin: 08/13/20 22:15 Dose: Not Given Documented by: Admin: 08/13/20 14:06 Dose: Not Given Documented by: Admin: 08/13/20 04:13 Dose: Not Given Documented by: Admin: 08/12/20 22:24 Dose: Not Given Documented by: ANGIE Shift Summary 08/14/20 04:49 Shift Summary by Lisette Armstrong Diagnosis: Cholecystitis, Lap Belle with Cholangiogram (08/12), ERCP (08/13) Brief History of Present Illness: Lap Sarah with Dr. Thompson, obstructing stone in common bile duct and underwent an ERCP with Dr. Calix yesterday. Orientation: Alert and Oriented Times Four VS/Oxygen: VSS, RA Ambulation Status: 1 SBA for IV Pole Assistance Post Op Toileting: Light Zaria Urine Quantity Sufficient IV Access: 20 Gauge Forearm NS at 100 ml/hr, IV Zosyn Q6 Skin/Wounds: 4 Lap Sites Abdomen Post Op with Kotlik/Tegaderm Pain: Dilaudid 0.5 mg Twice for Epigastric and Right Subcostal Tenderness, APAP IV Twice Discharge plans: Will D/C to home in [place] with daughter and spouse today. Additional Comments: Nitroglycerin patch TD removed 12 hours post ERCP, NPO 4 hours after ERCP and is tolerating clear liquids well now and denies nausea. Spouse and infant daughter in room and permission from greenhouse grower to be present due to breast feeding with parent. Will update shift summary report to oncoming RN at bedside. Initialized on 08/14/20 04:49 - END OF NOTE
--- NOTE | 2020-08-15 11:07 | Operative Note ---
DATE OF OPERATION: 08/12/2020 PREOPERATIVE DIAGNOSES: Cholelithiasis with cholecystitis and choledocholithiasis. POSTOPERATIVE DIAGNOSES: Cholelithiasis with cholecystitis and choledocholithiasis. PROCEDURE: Laparoscopic cholecystectomy with cholangiogram. SURGEON: Kieran Thompson M.D. FINDINGS: Acute inflammation of gallbladder with multiple stones and a distal common bile duct stone with no flow into the duodenum. DESCRIPTION OF PROCEDURE: Under general anesthesia, the patient's abdomen was prepped and draped in a sterile field. Supraumbilical midline incision was made. Veress needle was inserted. The abdomen was insufflated with 2.5 liters of CO2. A 12 mm port was placed. Laparoscope was placed. Under videoscopic guidance, a 12 mm port and two 5 mm ports were placed in the right subcostal region. Gallbladder was grasped and positioned. Cystic duct was dissected and followed back to the gallbladder. It was clipped at its junction with the gallbladder. An incision was made in the cystic duct at the level of the clamp. Cholangiocath was placed and cholangiogram was done. This showed a dilated duct with no flow into the duodenum. Full-strength contrast was then used and under maximum pressure there was no flow into the duodenum. The procedure was terminated. The catheter was removed. The gallbladder was then further dissected. Cystic artery was dissected, clipped with three clips and divided. Gallbladder was from the infrahepatic bed using electrocautery. Gallbladder was excised. Irrigation in the bed was carried out. There was no bleeding and there was no bile leak. Sponge, needle, instrument, and blade counts were verified as correct. The ports were removed. The fascia at the umbilicus was closed with interrupted 0 Vicryl. Port sites were closed with zay on the skin. Tegaderm dressings were placed. The patient was awakened from anesthesia uneventfully, transferred to a bed, and taken to the postanesthetic care unit in stable, satisfactory condition. LCS:tata Job ID: [id number] Doc ID: [id number] Kieran Thompson M.D.
--- NOTE | 2020-09-02 08:21 | XRay Report ---
INDICATION: ERCP Protocol TECHNIQUE: Endoscopy and ERCP was performed by Dr. Calix.. 2 minutes 41 seconds fluoroscopy utilized. Cannulation of the common bile duct and balloon removal of choledocholithiasis performed. Intraprocedure spot films were obtained IMPRESSION: 1. Intraprocedural fluoroscopy and spot films 2. ERCP with balloon stone removal from the common bile duct Interpreted and Authenticated by: Zia Mayers 09/02/20
== END 2020-08-14 16:45 | disposition home or self-care (01) ==
LOC: ED 02:50 → MEDSUR 02:50 → ICU 08-14 07:01
PROVIDERS: ADMIT Family Medicine Adult Medicine; ATTEND Family Medicine Adult Medicine